=== PATIENT | female | born 1940 | race Caucasian/White ===

== ENCOUNTER 2017-01-03 08:25 | Day surgery (SDC) | payer MEDICARE, OTHER ==
[2017-01-03] MEDS ORDERED: Lactated Ringers 1,000 ML IV SCH (09:00)
[2017-01-03] MEDS ORDERED: Propofol 200 MG/20 ML SDV ONE ×2 (09:57→10:47)
[2017-01-03] MEDS ORDERED: fentaNYL 100 MCG/2 ML SDV ONE (09:57)
[2017-01-03 12:20] VITALS: BP 121/71
--- NOTE | 2017-01-04 08:38 | OR ---
DATE OF PROCEDURE: 01/03/2017 PREOPERATIVE DIAGNOSIS: Colon cancer screening. POSTOPERATIVE DIAGNOSIS: Diverticulosis, 4 colon polyps, sent to laboratory as 3 specimens. PROCEDURE: Colonoscopy to the cecum with biopsy resection of 3 small colon polyps and snare cautery polypectomy of larger one. ANESTHESIA: IV anesthesia with monitored anesthesia care. INDICATIONS: This 76-year-old white female is referred for a colonoscopy for colon cancer screening. She says her last colonoscopic exam was done about 11 years ago. I counseled her for the procedure including the risks and alternatives, and she gave her informed consent to proceed. DESCRIPTION OF PROCEDURE: The patient was placed in the left lateral decubitus position. IV anesthesia was administered by the Anesthesia Service. Time-out was held. A rectal exam was performed, which was unremarkable. The flexible video Olympus colonoscope was introduced through her anus, up her rectum, and out her colon all the way to the cecum. En route, in the right colon, we saw 2 small polyps which were removed with the biopsy forceps. They were adjacent to each other, so they were sent together to the laboratory as one specimen. In the cecum, we saw another small polyp, which was removed with the biopsy forceps and sent to the laboratory. The scope was then slowly withdrawn, examining the mucosa throughout. No additional mucosal abnormalities noted until we reached the left colon. Here, we saw very few scattered left-sided diverticula. There was no bleeding or inflammation associated with them. At 20 cm from the anal verge, we encountered a pedunculated polyp. A snare was passed about its base. It was elevated up away from the bowel wall and amputated as electrocautery was applied. This polyp was aspirated up through the scope and captured in a polyp trap and sent to the laboratory. The scope was retroflexed in the rectum with the distal rectum appearing unremarkable. The scope was straightened and removed. She tolerated the procedure well. Deangelo Aguirre MD /[id number] MTDD
== END 2017-01-03 12:37 | disposition home or self-care (01) ==
LOC: JP.SDS 08:25
PROVIDERS: ATTEND Surgery
DX: Z12.11 Encounter for screening for malignant neoplasm of colon (principal); D12.2 Benign neoplasm of ascending colon; D12.0 Benign neoplasm of cecum; D12.6 Benign neoplasm of colon, unspecified; K57.30 Diverticulosis of large intestine without perforation or abscess without bleeding; K21.9 Gastro-esophageal reflux disease without esophagitis; M81.0 Age-related osteoporosis without current pathological fracture; Z79.899 Other long term (current) drug therapy
CPT/HCPCS: 45380; 45385; J2704; J3010; J7120; 88305

== ENCOUNTER 2017-01-05 15:31 | Emergency (ER) | payer MEDICARE, OTHER ==
[2017-01-05] MEDS ORDERED: Sodium Chloride 0.9% 1,000 ML IV ONE (16:06)
[2017-01-05] MEDS ORDERED: Sodium Chloride 0.9% 10 ML Syringe FLUSH PRN (16:06)
[2017-01-05] MEDS ORDERED: Acetaminophen 500 MG Tab PO ONE (16:07)
--- NOTE | 2017-01-05 16:12 | EDM.PDOC ---
ED HPI GENERAL MEDICAL PROBLEM - General Chief Complaint: Abdominal Pain Stated Complaint: COLONOSCOPY WED/ PAIN Time Seen by Provider: 01/05/17 16:00 Source of Information: Reports: Patient History Limitations: Reports: No Limitations - History of Present Illness INITIAL COMMENTS - FREE TEXT/NARRATIVE: Romelia is a delightful 76 year old female who presents to the ED today with c/o lower abdominal pain. Patient had colonoscopy with [address] Noonan on SundayJanuary 03. She has had lower abdominal pain since that time. She denies any other associative symptoms. Patient denies any nausea/ vomiting/diarrhea/hematochezia. Patient reports she has been passing light brown soft stool. Patient reports she spoke with the nurse line today who told her to come in. She has been eating and drinking well and denies any fever. She has been taking Tylenol for pain. Onset: Gradual Duration: Day(s): (2) Lower Abdominal Pain Score (Numeric/FACES): 6 - Related Data Allergies Allergy/AdvReac Type Severity Reaction Status Date / Time No Known Allergies Allergy Verified 01/03/17 08:49 Home Meds: Home Meds Albuterol Sulfate 2.5 mg IH DAILY 02/23/16 [History] Albuterol [Proair HFA] 2 puff INH Q4H PRN 02/23/16 [History] Arformoterol Tartrate [Brovana] 2 inh INH BID 02/23/16 [History] Aspirin [Ecotrin] 81 mg PO DAILY 02/23/16 [History] Furosemide [Lasix] 20 mg PO BID 02/23/16 [History] Gabapentin 300 mg PO BID 02/23/16 [History] Lisinopril 10 mg PO DAILY 02/23/16 [History] Lovastatin 40 mg PO BEDTIME 02/23/16 [History] Omeprazole 20 mg PO BIDAC 02/23/16 [History] Propranolol [Inderal LA] 80 mg PO BID 02/23/16 [History] cloNIDine [Catapres] 0.2 mg PO BEDTIME 02/23/16 [History] Ascorbic Acid [Vitamin C] 1,000 mg PO DAILY 10/23/16 [History] Gluc 2KCl/Chondr/Cris Hy/Hy Ac [Glucosamine & Chondroitin Cap] 1 each PO BID [History] Vitamin E 400 unit PO DAILY 10/23/16 [History] Acetaminophen 500 mg PO Q6H PRN 01/02/17 [History] Alendronate [Fosamax] 70 mg PO WEEKLY 01/02/17 [History] Budesonide [Pulmicort] 0.5 mg IH BID 01/02/17 [History] Fish Oil/[place]-3 Fatty Acids [Fish Oil] 1 each PO DAILY 01/02/17 [History] Hydrocodone/Acetaminophen [Hydrocodon-Acetaminophen 5-325] 1 each PO Q6H PRN [History] Loratadine [Claritin] 10 mg PO DAILY 01/02/17 [History] Sennosides/Docusate Sodium [Sennosides-Docusate Sodium] 2 each PO DAILY [History] Past Medical History HEENT History: Reports: Cataract, Glaucoma Other HEENT History: Fuchs Disease, monitored for Glaucome by in [place] Cardiovascular History: Reports: Heart Failure, High Cholesterol, Hypertension, SOB on Exertion Respiratory History: Reports: COPD Gastrointestinal History: Reports: Bowel Obstruction, GERD Genitourinary History: Reports: Renal Calculus 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: Reports: Dysfunctional Uterine Bleeding, Musculoskeletal History: Reports: Back Pain, Chronic, Neck Pain, Chronic, Osteoarthritis Neurological History: Reports: Neuropathy, Peripheral Endocrine/Metabolic History: Reports: Obesity/BMI 30+, Osteopenia Hematologic History: Reports: Blood Transfusion(s) Immunologic History: Reports: None Oncologic (Cancer) History: Reports: Lung - Infectious Disease History Infectious Disease History: Reports: Chicken Pox - Past Surgical History HEENT Surgical History: Reports: Tonsillectomy Cardiovascular Surgical History: Reports: AAA Repair, Aneurysm Respiratory Surgical History: Reports: Lung Biopsies, Lung Resection Other Respiratory Surgeries/Procedures: Radiation GI Surgical History: Reports: Appendectomy, Colonoscopy Female Surgical History: Reports: D&C, Hysterectomy Endocrine Surgical History: Reports: None Neurological Surgical History: Reports: None Musculoskeletal Surgical History: Reports: Shoulder Surgery Oncologic Surgical History: Reports: Lobectomy Social & Family History - Family History HEENT: Reports: None Cardiac: Reports: Heart Failure Other Cardiac Family History: Father heart attacks, mother congestive heart failure : Reports: Renal Calculus Musculoskeletal: Reports: Osteoarthritis Other Musculoskeletal Family History: Mother osteoarthritis Endocrine/Metabolic: Reports: Diabetes, type II Other Endocrine/Metabolic Family History: son, Type 2 diabetes Immunologic: Reports: None Dermatologic: Reports: None Oncologic: Reports: None - Tobacco Use Smoking Status *Q: Never Smoker Years of Tobacco use: 45 Packs/Tins Daily: 1 Used Tobacco, but Quit: Yes Month Tobacco Last Used: 2008 Second Hand Smoke Exposure: No - Caffeine Use Caffeine Use: Reports: Coffee Caffeine Use Comment: 4 cups coffee per day - Alcohol Use Days Per Week of Alcohol Use: 0 - Recreational Drug Use Recreational Drug Use: No - Living Situation & Occupation Living situation: Reports: Occupation: Retired ED ROS GENERAL - Review of Systems Review Of Systems: ROS reveals no pertinent complaints other than HPI. ED EXAM, GI/ABD - Physical Exam Exam: See Below Exam Limited By: No Limitations General Appearance: Alert, WD/WN, No Apparent Distress Neck: Normal Inspection Respiratory/Chest: Decreased Breath Sounds, Other (COPD, on chronic o2 ). No: Respiratory Distress Cardiovascular: Regular Rate, Rhythm, No Murmur GI/Abdominal Exam: Normal Bowel Sounds, Soft, Tender (mid line lower abdomen. ) (Female) Exam: Deferred Rectal (Female) Exam: Deferred Extremities: Normal Inspection Neurological: Alert, Oriented, CN II-XII Intact Psychiatric: Normal Affect, Normal Mood Skin Exam: Warm, Dry, Intact Course - Vital Signs Last Recorded V/S: Last Vital Signs Temp 36.6 C 01/05/17 15:53 Pulse 69 01/05/17 15:53 Resp 20 01/05/17 15:53 BP 149/77 H 01/05/17 15:53 Pulse Ox 94 L 01/05/17 15:53 Romelia is a 76 year old female who presents to the ED today with c/o mid-lower abdominal pain since her colonoscopy on Sunday. Please refer to HPI and focused exam. Patient on exam is well hydrated, she is non-toxic appearing, tender on exam to mid lower abdomen. Concern for perforation vs. infection vs. likely gaseous distension of colon. PIV established, patient was given a liter of NS here with 1 Gram of Tylenol for her pain as she drove here today. Blood work evaluated, CBC returns reassuring with a normal white count 7.7 and a HGB of 14.6. CMP returns with a creatinine of 1.5 and GFR of 34 which is baseline for patient. AST is mildly elevated at 63, ALT is mildly elevated at 93. CT scan, non contrast, obtained of abdomen and pelvis, this returns reassuring with no signs of perforation or abscess formation. Patient does have cholelithiasis without evidence for cholecystits. No biliary dilation. Large hiatal hernia with no obstruction. No small bowel wall thickening. Colon with area of slight wall prominence felt to be related to non-distention. I discussed findings of today's exam and test results with patient. I feel at this time she is stable to be discharged home. I would like her to continue to stay well hydrated and she can continue Tylenol for pain. I encouraged patient to follow up with her primary surgeon on Sunday to discuss today's visit, reasons to return to the ED were discussed in detail. Patient is agreeable to plan of care and discharged in stable condition. - Orders/Labs/Meds Orders: Active Orders 24 hr Category Date Time Status Peripheral IV Care [RC] . DIRECTED Care 01/05/17 16:06 Active Abdomen Pelvis wo Cont [CT] Stat Exams 01/05/17 16:48 Taken Sodium Chloride 0.9% [Saline Flush] Med 01/05/17 16:06 Active 10 ml FLUSH ASDIRECTED PRN Peripheral IV Insertion Adult [OM.PC] Routine Oth 01/05/17 16:06 Ordered Medication Orders Sodium Chloride (Saline Flush) 10 ml FLUSH ASDIRECTED PRN PRN Reason: Keep Vein Open Last Admin: 01/05/17 16:20 Dose: 10 ml Labs: Laboratory Tests 01/05/17 01/05/17 Range/Units 16:22 16:22 WBC 7.7 (4.5-11.0) K/uL RBC 4.93 (3.30-5.50) M/uL Hgb 14.6 (12.0-15.0) g/dL Hct 46.6 (36.0-48.0) % MCV 95 (80-98) fL MCH 30 (27-31) pg MCHC 31 L (32-36) % Plt Count 210 (150-400) K/uL Neut % (Auto) 46 (36-66) % Lymph % (Auto) 41 (24-44) % [place] % (Auto) 11 H (2-6) % Eos % (Auto) 1 L (2-4) % Baso % (Auto) 1 (0-1) % Sodium 141 (140-148) mmol/L Potassium 4.5 (3.6-5.2) mmol/L Chloride 103 (100-108) mmol/L Carbon Dioxide 31 (21-32) mmol/L Anion Gap 7.1 (5.0-14.0) mmol/L BUN 17 (7-18) mg/dL Creatinine 1.5 H (0.6-1.0) mg/dL Est Cr Clr Drug Dosing TNP Estimated GFR (MDRD) 34 L (>60) Glucose 113 H (74-106) mg/dL Calcium 10.4 H (8.5-10.1) mg/dL Total Bilirubin 0.5 (0.2-1.0) mg/dL AST 63 H (15-37) U/L ALT 93 H (12-78) U/L Alkaline Phosphatase 53 (46-116) U/L Total Protein 7.7 (6.4-8.2) g/dL Albumin 3.6 (3.4-5.0) g/dL Globulin 4.1 H (2.3-3.5) g/dL Albumin/Globulin Ratio 0.9 L (1.2-2.2) Lipase 104 (73-393) U/L Meds: Medications Generic Name Dose Route Start Last Admin Trade Name Freq PRN Reason Stop Dose Admin Sodium Chloride 10 ml 01/05/17 16:06 01/05/17 16:20 Saline Flush FLUSH 10 ml ASDIRECTED PRN Administration Keep Vein Open Discontinued Medications Generic Name Dose Route Start Last Admin Trade Name Freq PRN Reason Stop Dose Admin Acetaminophen 1,000 mg 01/05/17 16:07 01/05/17 16:22 Tylenol Extra Strength PO 01/05/17 16:08 1,000 mg ONETIME ONE Administration Sodium Chloride 1,000 mls @ 999 mls/hr 01/05/17 16:06 01/05/17 16:19 Normal Saline IV 01/05/17 17:06 999 mls/hr .BOLUS ONE Administration Departure - Departure Time of Disposition: 18:30 Disposition: Home, Self-Care 01 Condition: Good Clinical Impression: Abdominal pain Qualifiers: Abdominal location: lower abdomen, unspecified Qualified Code(s): R10.30 - Lower abdominal pain, unspecified - Discharge Information Instructions: Abdominal Pain, Adult, [id number] Referrals: Grover Lombardo MD [Primary Care Provider] - Forms: ED Department Discharge Additional Instructions: Vera, It is likely the abdominal pain you have is from recent colonoscopy and gas in colon. CT scan and blood work are reassuring. Please continue to stay well hydrated. You can take 1,000 mg of Tylenol every 6 hours for pain, maximum total in a 24 hour period is 4,000 mg. If you continue to have pain on Sunday please call the clinic. If you develop any worsening symptoms or complications I would like you to return here. Take care and I hope you feel better soon. - My Orders Last 24 Hours: My Active Orders 01/05/17 16:06 Peripheral IV Care [RC] . DIRECTED Sodium Chloride 0.9% [Saline Flush] 10 ml FLUSH ASDIRECTED PRN Peripheral IV Insertion Adult [OM.PC] Routine 01/05/17 16:48 Abdomen Pelvis wo Cont [CT] Stat - Assessment/Plan Last 24 Hours: My Active Orders 01/05/17 16:06 Peripheral IV Care [RC] . DIRECTED Sodium Chloride 0.9% [Saline Flush] 10 ml FLUSH ASDIRECTED PRN Peripheral IV Insertion Adult [OM.PC] Routine 01/05/17 16:48 Abdomen Pelvis wo Cont [CT] Stat
[2017-01-05 16:48] VITALS: BP 149/77
== END 2017-01-05 18:45 | disposition home or self-care (01) ==
LOC: JP.ED 15:31
DX: R10.30 Lower abdominal pain, unspecified (principal); I11.0 Hypertensive heart disease with heart failure; I50.9 Heart failure, unspecified; E78.00 Pure hypercholesterolemia, unspecified; J44.9 Chronic obstructive pulmonary disease, unspecified; K21.9 Gastro-esophageal reflux disease without esophagitis; G62.9 Polyneuropathy, unspecified; E66.9 Obesity, unspecified; M85.80 Other specified disorders of bone density and structure, unspecified site; M19.90 Unspecified osteoarthritis, unspecified site; Z90.710 Acquired absence of both cervix and uterus; Z98.890 Other specified postprocedural states; Z86.79 Personal history of other diseases of the circulatory system; Z79.82 Long term (current) use of aspirin; Z79.899 Other long term (current) drug therapy
CPT/HCPCS: 36415; 74176; 80053; 83690; 85025; 96360; 99284; A9270; J7040; J7050

== ENCOUNTER 2017-09-24 06:03 | Emergency (ER) | payer MEDICARE, OTHER ==
[2017-09-24 06:23] VITALS: BP 132/69
--- NOTE | 2017-09-24 07:26 | EDM.PDOC ---
ED HPI GENERAL MEDICAL PROBLEM - General Chief Complaint: Genitourinary Problem Stated Complaint: BLOOD IN URINE Time Seen by Provider: 09/24/17 07:20 Source of Information: Reports: Patient History Limitations: Reports: No Limitations - History of Present Illness INITIAL COMMENTS - FREE TEXT/NARRATIVE: pt arrived with pain on voiding and very bloody urine. She Has alot of pressure and has the sensationlike she is going to have BM,. Onset: Today, Other ( started about 3 am) Duration: Hour(s): Location: Reports: Abdomen, Other ( burning in the unique area. ) Quality: Reports: Sharp Associated Symptoms: Reports: Other ( severe burning on urination) Pain Score (Numeric/FACES): 3 - Related Data Allergies Allergy/AdvReac Type Severity Reaction Status Date / Time No Known Allergies Allergy Verified 09/24/17 06:17 Home Meds: Home Meds Albuterol [Proair HFA] 2 puff INH Q4H PRN 02/23/16 [History] Arformoterol Tartrate [Brovana] 2 inh INH DAILY 02/23/16 [History] Aspirin [Ecotrin] 81 mg PO DAILY 02/23/16 [History] Furosemide [Lasix] 20 mg PO BID 02/23/16 [History] Gabapentin 300 mg PO BID 02/23/16 [History] Lisinopril 10 mg PO DAILY 02/23/16 [History] Lovastatin 40 mg PO BEDTIME 02/23/16 [History] Omeprazole 20 mg PO BIDAC 02/23/16 [History] Propranolol [Inderal LA] 40 mg PO BID 02/23/16 [History] cloNIDine [Catapres] 0.2 mg PO BEDTIME 02/23/16 [History] Ascorbic Acid [Vitamin C] 1,000 mg PO DAILY 10/23/16 [History] Gluc 2KCl/Chondr/Cris Hy/Hy Ac [Glucosamine & Chondroitin Cap] 1 each PO BID [History] Vitamin E 400 unit PO DAILY 10/23/16 [History] Acetaminophen 500 mg PO DAILY 01/02/17 [History] Alendronate [Fosamax] 70 mg PO WEEKLY 01/02/17 [History] Budesonide [Pulmicort] 0.5 mg IH DAILY 01/02/17 [History] Fish Oil/[place]-3 Fatty Acids [Fish Oil] 1 each PO DAILY 01/02/17 [History] Hydrocodone/Acetaminophen [Hydrocodon-Acetaminophen 5-325] 1 each PO Q6H PRN [History] Sennosides/Docusate Sodium [Sennosides-Docusate Sodium] 2 each PO DAILY [History] Docusate Sodium [Colace] 100 mg PO DAILY 09/24/17 [History] Past Medical History HEENT History: Reports: Cataract, Glaucoma Other HEENT History: Fuchs Disease, monitored for Glaucome by Dr in [place] Cardiovascular History: Reports: Heart Failure, High Cholesterol, Hypertension, SOB on Exertion, Other (See Below) Other Cardiovascular History: dissecting aortic aneuysm in 2009 Respiratory History: Reports: COPD Gastrointestinal History: Reports: Bowel Obstruction, Colon Polyp, GERD Genitourinary History: Reports: Renal Calculus 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, Musculoskeletal History: Reports: Back Pain, Chronic, Neck Pain, Chronic, Osteoarthritis Neurological History: Reports: Neuropathy, Peripheral Endocrine/Metabolic History: Reports: Obesity/BMI 30+, Osteopenia Hematologic History: Reports: Blood Transfusion(s) Immunologic History: Reports: None Oncologic (Cancer) History: Reports: Lung - Infectious Disease History Infectious Disease History: Reports: Chicken Pox - Past Surgical History HEENT Surgical History: Reports: Tonsillectomy Cardiovascular Surgical History: Reports: AAA Repair, Aneurysm Respiratory Surgical History: Reports: Lung Biopsies, Lung Resection Other Respiratory Surgeries/Procedures: Radiation GI Surgical History: Reports: Appendectomy, Colonoscopy Female Surgical History: Reports: D&C, Hysterectomy Endocrine Surgical History: Reports: None Musculoskeletal Surgical History: Reports: Shoulder Surgery Oncologic Surgical History: Reports: Lobectomy Social & Family History - Family History HEENT: Reports: None Cardiac: Reports: Heart Failure Other Cardiac Family History: Father heart attacks, mother congestive heart failure : Reports: Renal Calculus Musculoskeletal: Reports: Osteoarthritis Other Musculoskeletal Family History: Mother osteoarthritis Endocrine/Metabolic: Reports: Diabetes, type II Other Endocrine/Metabolic Family History: son, Type 2 diabetes Immunologic: Reports: None Dermatologic: Reports: None Oncologic: Reports: None - Tobacco Use Smoking Status *Q: Former Smoker Years of Tobacco use: 45 Packs/Tins Daily: 1 Used Tobacco, but Quit: Yes Month/Year Tobacco Last Used: 2008 Second Hand Smoke Exposure: No - Caffeine Use Caffeine Use: Reports: Coffee Caffeine Use Comment: 4 cups coffee per day - Alcohol Use Days Per Week of Alcohol Use: 0 - Recreational Drug Use Recreational Drug Use: No - Living Situation & Occupation Living situation: Reports: Occupation: Retired ED ROS GENERAL - Review of Systems Review Of Systems: See Below Constitutional: Reports: No Symptoms HEENT: Reports: No Symptoms Respiratory: Reports: No Symptoms Cardiovascular: Reports: No Symptoms Endocrine: Reports: No Symptoms GI/Abdominal: Reports: No Symptoms : Reports: Dysuria, Frequency, Hematuria, Urgency, Other ( she has the sensation that she is going to have bm. ) Musculoskeletal: Reports: No Symptoms Skin: Reports: No Symptoms ED EXAM, GI/ABD - Physical Exam Exam: See Below Exam Limited By: No Limitations General Appearance: Alert, Moderate Distress, Other (pupils equal and reactive. ) Ears: Normal TMs Nose: Normal Inspection Throat/Mouth: Normal Inspection Head: Atraumatic Neck: Normal Inspection Respiratory/Chest: No Respiratory Distress Cardiovascular: Regular Rate, Rhythm GI/Abdominal Exam: Soft, Non-Tender (Female) Exam: Other (pt is having gross hematuria with alot of burning on urination. ) Rectal (Female) Exam: Deferred Back Exam: Normal Inspection Extremities: Normal Inspection Neurological: Alert, Oriented, Normal Cognition Course - Vital Signs Last Recorded V/S: Last Vital Signs Temp 36.4 C 09/24/17 06:21 Pulse 72 09/24/17 06:21 Resp 24 H 09/24/17 06:21 BP 132/69 09/24/17 06:21 Pulse Ox 96 09/24/17 06:21 - Orders/Labs/Meds Labs: Laboratory Tests 09/24/17 09/24/17 09/24/17 Range/Units 06:51 07:23 07:23 WBC 8.2 (4.5-11.0) K/uL RBC 4.71 (3.30-5.50) M/uL Hgb 13.9 (12.0-15.0) g/dL Hct 43.9 (36.0-48.0) % MCV 93 (80-98) fL MCH 30 (27-31) pg MCHC 32 (32-36) % Plt Count 195 (150-400) K/uL Neut % (Auto) 57 (36-66) % Lymph % (Auto) 30 (24-44) % [place] % (Auto) 11 H (2-6) % Eos % (Auto) 2 (2-4) % Baso % (Auto) 0 (0-1) % Sodium 143 (140-148) mmol/L Potassium 4.5 (3.6-5.2) mmol/L Chloride 105 (100-108) mmol/L Carbon Dioxide 29 (21-32) mmol/L Anion Gap 8.8 (5.0-14.0) mmol/L BUN 26 H D (7-18) mg/dL Creatinine 1.1 H (0.6-1.0) mg/dL Est Cr Clr Drug Dosing 34.95 mL/min Estimated GFR (MDRD) 48 L (>60) Glucose 138 H (74-106) mg/dL Calcium 10.0 (8.5-10.1) mg/dL Total Bilirubin 0.4 (0.2-1.0) mg/dL AST 36 (15-37) U/L ALT 78 (12-78) U/L Alkaline Phosphatase 51 (46-116) U/L Total Protein 7.0 (6.4-8.2) g/dL Albumin 3.5 (3.4-5.0) g/dL Globulin 3.5 (2.3-3.5) g/dL Albumin/Globulin Ratio 1.0 L (1.2-2.2) Urine Color Red Urine Appearance Turbid Urine pH 6.0 (4.5-8.0) Ur Specific Leiter 1.020 (1.008-1.030) Urine Protein 500 H (NEGATIVE) mg/dL Urine Glucose (UA) Normal (NEGATIVE) mg/dL Urine Ketones Negative (NEGATIVE) mg/dL Urine Occult Blood Large (NEGATIVE) Urine Nitrite Negative (NEGATIVE) Urine Bilirubin Small (NEGATIVE) Urine Urobilinogen 1 (NORMAL) mg/dL Ur Leukocyte Esterase Large (NEGATIVE) Urine RBC Packed H (0-5) Urine WBC 30-40 H (0-5) Ur Epithelial Cells Not seen Amorphous Sediment Not seen Urine Bacteria Many Urine Mucus Few Meds: Medications Discontinued Medications Generic Name Dose Route Start Last Admin Trade Name Freq PRN Reason Stop Dose Admin Bisacodyl 10 mg 09/24/17 09:24 09/24/17 09:30 Dulcolax RECTAL 09/24/17 09:25 10 mg ONETIME ONE Administration Sodium Chloride 1,000 mls @ 999 mls/hr 09/24/17 07:45 09/24/17 08:04 Normal Saline IV 999 mls/hr ASDIRECTED CURTIS Administration Ceftriaxone Sodium 1 gm/ 50 mls @ 100 mls/hr 09/24/17 07:44 09/24/17 08:03 Sodium Chloride IV 09/24/17 08:13 100 mls/hr ONETIME ONE Administration Sodium Chloride 85 mls @ 3.5 mls/sec 09/24/17 08:15 09/24/17 08:34 Normal Saline IV 09/24/17 13:00 3.5 mls/sec ASDIRECTED CURTIS Administration Sodium Chloride 1,000 mls @ 500 mls/hr 09/24/17 09:30 09/24/17 09:30 Normal Saline IV 500 mls/hr ASDIRECTED CURTIS Administration Iopamidol 150 ml 09/24/17 08:08 09/24/17 08:34 Isovue-300 (61%) IV 09/25/17 08:09 150 ml . DIRECTED PRN Administration RADIOLOGY EXAM Sodium Chloride 10 ml 09/24/17 08:08 09/24/17 08:34 Saline Flush FLUSH 09/24/17 13:00 10 ml ONETIME PRN Administration per radiology protocol - Re-Assessments/Exams Free Text/Narrative Re-Assessment/Exam: 09/24/17 10:23 PT HAD A CAT SCAN OF THE ABDOMAN WITH AND WITHOUT CONTRAST. WHICH SHOWED MULTIPLE STONES IN THE KIDNEYS, NONE IN THE URETERS. tHERE IS NO MASSES AND NO POLYPS PRESENT. hER KIDNEYS APPEAR NORMAL. sHE HAS A LARGE BOLUS OF STOOL IN THE RECTUM. sHE WAS GIBEN A SUPP AND HAD A LARGE BM. sHE IS FEELING BETTER FROM THAT PERSPECTIVE. tHE BLOOD APPEARS TO BE A LITTLE LESS. Departure - Departure Time of Disposition: 11:45 Disposition: Home, Self-Care 01 Condition: Fair Clinical Impression: UTI (urinary tract infection) - Discharge Information Instructions: Urinary Tract Infection, Adult Referrals: Grover Lombardo MD [Primary Care Provider] - Forms: ED Department Discharge Care Plan Goals: PUSH FLUIDS, RTC IF BLEEDING SHOULD GE HEAVIER, APPT WITH USUAL dR IN 1WEEK TO BE SURE THE BLOOD IS CLEARING. cIPRO 500MG BID FOR 10 DAYS PYRIDIUM 200MG TID FOR 2 DAYS FOR THE BURNING.
[2017-09-24] MEDS ORDERED: cefTRIAXone 1 GM in Sodium Chloride 0.9% 50 ML IV ONE (07:44)
[2017-09-24] MEDS ORDERED: Sodium Chloride 0.9% 1,000 ML IV SCH ×2 (07:45→09:30)
[2017-09-24] MEDS ORDERED: Iopamidol 612 MG/ML 150 ML Bottle IV PRN (08:08)
[2017-09-24] MEDS ORDERED: Sodium Chloride 0.9% 10 ML Syringe FLUSH PRN (08:08)
[2017-09-24] MEDS ORDERED: Bisacodyl 10 MG Supp RECTAL ONE (09:24)
--- NOTE | 2017-09-24 09:27 | CT ---
Abdomen Pelvis w wo Cont HISTORY: Pain, hematuria. COMPARISON: 01/06/2017. FINDINGS: Multiphasic imaging was performed. Scattered nonobstructing kidney stones measuring 2 to 3 mm. No hydronephrosis or hydroureter. Parapelvic cyst right kidney measuring 2.4 cm. No solid renal l esions seen. No bladder filling defects seen. Moderate stool within the rectum no obstruction. There are small gallstones in the gallbladder. The liver, spleen, pancreas and adrenal glands appear unremarkable. Prior stenting of the aorta at the level of the diaphragm. Large hiatal hernia. Impression: 1. Nonobstructing nephrolithiasis. No direct findings for patient's hematuria. 2. Moderate stool the level of the rectum.
== END 2017-09-24 11:44 | disposition home or self-care (01) ==
LOC: JP.ED 06:03
DX: N39.0 Urinary tract infection, site not specified (principal); R31.9 Hematuria, unspecified; I11.0 Hypertensive heart disease with heart failure; I50.9 Heart failure, unspecified; E78.00 Pure hypercholesterolemia, unspecified; Z79.82 Long term (current) use of aspirin; Z79.899 Other long term (current) drug therapy; Z87.891 Personal history of nicotine dependence
CPT/HCPCS: 36415; 74178; 80053; 81001; 85025; 87086; 87088; 87186; 96361; 96365; 99284; A9270; J0696; J7030; J7040; J7050; 99283

== ENCOUNTER 2020-03-19 08:42 | Inpatient (IN) | payer MEDICARE, OTHER ==
[2020-03-19] MEDS ORDERED: Acetaminophen 500 MG Tab PO ONE (09:15)
[2020-03-19] MEDS ORDERED: ceFAZolin 2 GM in Premix Bag 1 BAG IV ONE (09:15)
[2020-03-19] MEDS ORDERED: Gabapentin 300 MG Cap PO ONE (09:15)
[2020-03-19] MEDS ORDERED: Albuterol/Ipratropium 3.0-0.5 MG/3 ML Neb Soln NEB ONE (09:15)
[2020-03-19] MEDS ORDERED: fentaNYL 250 MCG/5 ML SDV ONE (10:28)
[2020-03-19] MEDS ORDERED: Ondansetron 4 MG/2 ML SDV ONE (10:28)
[2020-03-19] MEDS ORDERED: Succinylcholine 200 MG/10 ML MDV ONE (10:28)
[2020-03-19] MEDS ORDERED: Glycopyrrolate 0.2 MG/ML 5 ML MDV ONE (10:28)
[2020-03-19] MEDS ORDERED: Dexamethasone 4 MG/ML SDV ONE (10:28)
[2020-03-19] MEDS ORDERED: Rocuronium 50 MG/5 ML Vial ONE (10:28)
[2020-03-19] MEDS ORDERED: Propofol 200 MG/20 ML SDV ONE (10:28)
[2020-03-19] MEDS ORDERED: Neostigmine Methylsulfate 1 MG/ML 5 ML Syringe ONE (10:28)
[2020-03-19] MEDS: Dextrose 5%-Lactated Ringers 1,000 ML IV SCH ×2 (10:30→14:35)
[2020-03-19] MEDS ORDERED: Isosulfan Blue 5 ML SDV ONE (11:02)
[2020-03-19] MEDS ORDERED: Mupirocin Oint 22 GM Tube ONE (12:15)
[2020-03-19] MEDS ORDERED: fentaNYL 100 MCG/2 ML SDV ONE (12:15)
[2020-03-19] MEDS ORDERED: Ondansetron 4 MG/2 ML SDV IVPUSH PRN ×2 (12:20→14:00)
[2020-03-19] MEDS ORDERED: Naloxone 0.4 MG/ML SDV IVPUSH PRN (12:20)
[2020-03-19] MEDS ORDERED: diphenhydrAMINE 25 MG Cap PO PRN (12:20)
[2020-03-19] MEDS ORDERED: diphenhydrAMINE 50 MG/ML SDV IVPUSH PRN (12:20)
[2020-03-19] MEDS ORDERED: HYDROmorphone/Normal Saline 15 MG/30 ML PCA IV PRN (12:30)
[2020-03-19] MEDS ORDERED: Naloxone 0.4 MG/ML SDV IV PRN (13:00)
[2020-03-19] MEDS ORDERED: Albuterol/Ipratropium 3.0-0.5 MG/3 ML Neb Soln INH PRN (14:00)
[2020-03-19] MEDS: Albuterol/Ipratropium 3.0-0.5 MG/3 ML Neb Soln INH SCH ×2 (14:27→21:17)
[2020-03-19] MEDS: Furosemide 20 MG Tab PO SCH (14:38)
[2020-03-19] MEDS: Loratadine 10 MG Tab PO SCH (14:38)
[2020-03-19] MEDS: Acetaminophen 325 MG Tab PO SCH ×2 (14:38→21:15)
[2020-03-19] MEDS: Pantoprazole 40 MG Tab.CR PO SCH (16:21)
[2020-03-19] MEDS: ceFAZolin 1 GM in Premix Bag 1 BAG IV SCH (18:04)
[2020-03-19] MEDS: Gabapentin 300 MG Cap PO SCH (21:15)
[2020-03-19] MEDS: cloNIDine 0.1 MG Tab PO SCH (21:15)
[2020-03-19] MEDS: Metoprolol Tartrate 50 MG Tab PO SCH (21:15)
[2020-03-19] MEDS: Arformoterol 15 MCG/2 ML Neb Soln INH SCH (21:16)
[2020-03-19] MEDS: Budesonide 0.5 MG/2 ML Neb Susp INH SCH (21:17)
[2020-03-20] MEDS: ceFAZolin 1 GM in Premix Bag 1 BAG IV SCH ×2 (01:27→11:26)
[2020-03-20] MEDS: Acetaminophen 325 MG Tab PO SCH ×4 (01:31→20:09)
[2020-03-20] MEDS: Dextrose 5%-Lactated Ringers 1,000 ML IV SCH (01:35)
[2020-03-20] MEDS ORDERED: Sodium Chloride 0.9% 10 ML Syringe IV PRN (07:21)
[2020-03-20] MEDS: Albuterol/Ipratropium 3.0-0.5 MG/3 ML Neb Soln INH SCH ×4 (08:00→20:13)
[2020-03-20] MEDS: Budesonide 0.5 MG/2 ML Neb Susp INH SCH ×2 (08:00→20:24)
[2020-03-20] MEDS: Arformoterol 15 MCG/2 ML Neb Soln INH SCH ×2 (08:01→20:13)
[2020-03-20] MEDS: Loratadine 10 MG Tab PO SCH (08:45)
[2020-03-20] MEDS: Pantoprazole 40 MG Tab.CR PO SCH ×2 (08:45→15:58)
[2020-03-20] MEDS: Furosemide 20 MG Tab PO SCH ×2 (08:45→13:42)
[2020-03-20] MEDS: Aspirin 81 MG Tab.EC PO SCH (08:46)
[2020-03-20] MEDS: Gabapentin 300 MG Cap PO SCH ×2 (08:46→20:13)
[2020-03-20] MEDS: Metoprolol Tartrate 50 MG Tab PO SCH ×2 (08:46→20:12)
[2020-03-20] MEDS: Ascorbic Acid 500 MG Tab PO SCH (08:46)
[2020-03-20] MEDS: Lisinopril 10 MG Tab PO SCH (08:47)
[2020-03-20] MEDS: Mupirocin Oint 22 GM Tube TOP SCH (08:48)
[2020-03-20] MEDS: HYDROmorphone 2 MG Tab PO PRN ×3 (09:03→20:12)
[2020-03-20] MEDS: cloNIDine 0.1 MG Tab PO SCH (20:09)
[2020-03-21] MEDS: Acetaminophen 325 MG Tab PO SCH ×4 (03:38→20:51)
[2020-03-21] MEDS: HYDROmorphone 2 MG Tab PO PRN ×2 (03:42→13:40)
[2020-03-21] MEDS: Budesonide 0.5 MG/2 ML Neb Susp INH SCH ×2 (07:16→20:39)
[2020-03-21] MEDS: Albuterol/Ipratropium 3.0-0.5 MG/3 ML Neb Soln INH SCH ×4 (07:16→20:39)
[2020-03-21] MEDS: Arformoterol 15 MCG/2 ML Neb Soln INH SCH ×2 (07:20→20:51)
[2020-03-21] MEDS: Furosemide 20 MG Tab PO SCH ×2 (07:29→13:34)
[2020-03-21] MEDS: Pantoprazole 40 MG Tab.CR PO SCH ×2 (07:29→15:43)
[2020-03-21] MEDS: Ascorbic Acid 500 MG Tab PO SCH (08:16)
[2020-03-21] MEDS: Metoprolol Tartrate 50 MG Tab PO SCH ×2 (08:16→20:52)
[2020-03-21] MEDS: Aspirin 81 MG Tab.EC PO SCH (08:16)
[2020-03-21] MEDS: Loratadine 10 MG Tab PO SCH (08:16)
[2020-03-21] MEDS: Gabapentin 300 MG Cap PO SCH ×2 (08:16→20:51)
[2020-03-21] MEDS: Lisinopril 10 MG Tab PO SCH (08:17)
[2020-03-21] MEDS: Mupirocin Oint 22 GM Tube TOP SCH (08:17)
[2020-03-21] MEDS ORDERED: FLU Vacc QV2020-21(65YR UP)/PF 240 MCG/0.7 ML Syringe IM ONE (09:00)
--- NOTE | 2020-03-21 13:11 | PN ---
DATE OF SERVICE: 03/20/2020 The patient has been afebrile with stable vital signs. No major problems were noted. LEIGHA drainage is moderate, still somewhat blood-tinged, but otherwise does not look problematic. We will give her regular diet today, go over oral pain medication, teach her LEIGHA care, and she perhaps may be ready for discharge home tomorrow depending on her pulmonary status and overall functional level. Coleman Lanier MD /[id number]
--- NOTE | 2020-03-21 14:29 | PN ---
DATE OF SERVICE: 03/21/2020 The patient has been afebrile with stable vital signs. site looks clean. She is beginning to get a little bit more mobile with respiratory status, so we will keep her 1 more day and will probably be ready for discharge home tomorrow. Coleman Lanier MD /[id number]
[2020-03-21] MEDS: cloNIDine 0.1 MG Tab PO SCH (20:53)
[2020-03-22] MEDS: Acetaminophen 325 MG Tab PO SCH ×2 (02:57→07:41)
[2020-03-22] MEDS: Arformoterol 15 MCG/2 ML Neb Soln INH SCH (07:00)
[2020-03-22] MEDS: Albuterol/Ipratropium 3.0-0.5 MG/3 ML Neb Soln INH SCH ×2 (07:00→10:55)
[2020-03-22] MEDS: Budesonide 0.5 MG/2 ML Neb Susp INH SCH (07:00)
[2020-03-22 07:25] VITALS: BP 131/64
[2020-03-22] MEDS: Pantoprazole 40 MG Tab.CR PO SCH (07:41)
[2020-03-22] MEDS: Furosemide 20 MG Tab PO SCH (07:41)
[2020-03-22] MEDS: Aspirin 81 MG Tab.EC PO SCH (08:20)
[2020-03-22] MEDS: Gabapentin 300 MG Cap PO SCH (08:20)
[2020-03-22] MEDS: Mupirocin Oint 22 GM Tube TOP SCH (08:20)
[2020-03-22] MEDS: Ascorbic Acid 500 MG Tab PO SCH (08:20)
[2020-03-22 08:22] VITALS: PULSE 67
[2020-03-22] MEDS: Metoprolol Tartrate 50 MG Tab PO SCH (08:22)
[2020-03-22] MEDS: Lisinopril 10 MG Tab PO SCH (08:22)
--- NOTE | 2020-03-22 08:24 | DISCH ---
ADMISSION DIAGNOSES: Ductal carcinoma in situ, low nuclear grade, solid papillary breast cancer, right breast; bronchogenic lung cancer, left; chronic obstructive pulmonary disease; hypertension; hyperlipidemia; oxygen dependent. DISCHARGE DIAGNOSES: Right modified radical mastectomy with sentinel lymph node biopsies for ductal carcinoma in situ right breast. Date of procedure: 03/19/2020. Surgeon: Coleman Lanier MD. HISTORY: Romelia Bowman is a 79-year-old female who presented with an abnormal screening of mammogram 1.3 x 0.9 x 0.8 cm nodule right breast at 3 o'clock. Core biopsy was done on 01/28 showed ductal carcinoma in situ, low nuclear grade, solid papillary. After preoperative evaluation and discussion of possible risks and possible complications, she wished to proceed with surgical procedure. HOSPITAL COURSE: Romelia had her surgery on 03/19/2020. She had no operative complications. On postoperative day #1, vital signs remained stable. LEIGHA drain was moderate and blood tinged. She was started on a regular diet, oral pain medication. On postoperative day #2, she was taught how to take care of her LEIGHA drains. Her pain was controlled. Activity was good. Vital signs stable. On 03/22/2020, she was able to be discharged to home. PHYSICAL EXAMINATION: GENERAL: Romelia Bowman is a pleasant 79-year-old female. VITAL SIGNS: Height is 5 feet 1.75 inches, weight is 224 pounds. TPR at 02:59 is 97.3; 73; 18; blood pressure 112/57. HEENT: Negative. NECK: Supple. HEART: Regular rate and rhythm. LUNGS: Clear. SKIN: Right stapled incision looks good. LEIGHA drains x2 intact. LEIGHA 1 put out 20 and LEIGHA drain 3 put out 30 in the past 24 hours. The drainage is a pink serosanguineous. EXTREMITIES: Without peripheral edema. DISPOSITION: Discharged home. CONDITION: Stable and improving. FOLLOWUP APPOINTMENT: On 03/31/2020 at 8:30 a.m. with Coleman Lanier MD. HOME MEDICATIONS: 1. Dilaudid 2 mg q.4 hours p.r.n. pain, #10. 2. Bactroban ointment, tube to be sent home with the patient, put around LEIGHA drain sites. 3. Tylenol 650 mg oral q.6 hours p.r.n. pain. 4. She is to resume her home medication of: a. ProAir inhaler 2 puffs every 4 hours p.r.n. shortness of breath. b. Brovana 2 mL inhalation b.i.d. c. Vitamin C 1000 mg oral daily. d. Aspirin 81 mg daily. e. Pulmicort 0.5 inhalation twice daily. f. Sealevel-3 fish oil 1000 mg 1 daily. g. Lasix 20 mg oral twice daily. h. Gabapentin 300 mg oral twice daily. i. Glucosamine 1 daily. j. Lisinopril 10 mg oral daily. k. Claritin 10 mg oral daily. l. Lovastatin 40 mg oral at bedtime. m. Metoprolol tartrate 50 mg oral twice daily. n. Omeprazole 20 mg oral twice daily. o. Sennosides, docusate sodium 2 tablets oral daily. p. Vitamin E 400 International Units daily. q. Catapres 0.2 mg at bedtime. DIET: Usual diet as tolerated. Drink 8 to 10 glasses of water a day. ACTIVITY: No lifting greater than 10 pounds for 6 weeks. Driving: Do not drive for 1 week. Shower/bathing: May shower. DISCHARGE INSTRUCTIONS: Notify provider if any fever, increased pain, swelling, redness, nausea, vomiting. Keep site clean and dry. Wound incision care: Strip, empty, measure, and record LEIGHA drains 4 times a day. Bring record of drainage to clinic appointments. SPECIAL INSTRUCTION: Use incentive spirometer 10 times every hour while awake.
[2020-03-22] MEDS: Loratadine 10 MG Tab PO SCH (08:34)
--- NOTE | 2020-03-23 12:47 | OR ---
DATE OF PROCEDURE: 03/19/2020 SURGEON: Coleman Lanier MD PREOPERATIVE DIAGNOSIS: Ductal carcinoma in situ of the right breast. POSTOPERATIVE DIAGNOSIS: Ductal carcinoma in situ of the right breast. OPERATIVE PROCEDURES: 1. Right modified radical mastectomy (). 2. Injection procedure for identification of sentinel lymph nodes (29903). ANESTHESIA: General. FEED BLENDER: Jacki Rm PA-C INDICATIONS FOR PROCEDURE: A 79-year-old female presenting with a newly-diagnosed ductal carcinoma in situ in the right breast. After preoperative evaluation and discussion, she wished to proceed with a mastectomy for definitive local regional control. Given mastectomy will be performed, sentinel lymph node biopsies will be undertaken as part of the mastectomy in the event some occult invasive carcinoma is identified at the time of final pathologic exam. Potential risks of the procedure including bleeding, infection, local or distant tumor recurrence were all reviewed, and the patient wishes to proceed. DETAILS OF PROCEDURE: The patient was taken to the operating room and placed in a supine position. After general endotracheal anesthesia was induced, the Isosulfan Blue dye was injected in the subdermal areas overlying the biopsy site, and the breast prepped and draped. A transversely-oriented elliptical incision was made including the previous biopsy site, nipple-areolar complex, then carried down through the skin and subcutaneous tissue. Subcutaneous flaps were then raised superiorly, medially, inferiorly, and laterally to the usual extent and the breast was then reflected off the chest wall in continuity to pectoralis major fascia. The lymphatic gland was noted to be creeping down into the level 3 of the axillary nodes and this group of nodes was then excised en bloc with the breast and the specimen delivered from the field. The area of dissection was inspected. No bleeding or other problems were noted. Two Danish-Souza drains were then placed through stab wounds inferior to the main incision. The incision was then closed with 2 layers of 2-0 Vicryl stitch deep and then sean for the skin. Drains were fixed with some 3-0 nylon stitch. The patient was taken to the recovery room in satisfactory condition. There were no evident complications. Coleman Lanier MD /[id number]
== END 2020-03-22 12:09 | disposition home health service (06) | DRG 582 ==
LOC: JP.MS 08:42 → JP.SDS 08:42 → JP.MS 12:30 → EDSTATUS 14:25
PROVIDERS: ADMIT Surgery; ATTEND Surgery
PROC: 0HTT0ZZ Resection of Right Breast, Open Approach (ICD-10-PCS; principal; 2020-03-19)
PROC: 3E02340 Introduction of Influenza Vaccine into Muscle, Percutaneous Approach (ICD-10-PCS; 2020-03-22)
DX: D05.11 Intraductal carcinoma in situ of right breast (principal); C34.31 Malignant neoplasm of lower lobe, right bronchus or lung; J44.9 Chronic obstructive pulmonary disease, unspecified; I10 Essential (primary) hypertension; E78.5 Hyperlipidemia, unspecified; Z99.81 Dependence on supplemental oxygen; Z88.5 Allergy status to narcotic agent; Z87.442 Personal history of urinary calculi; Z87.891 Personal history of nicotine dependence; Z90.49 Acquired absence of other specified parts of digestive tract; Z90.710 Acquired absence of both cervix and uterus; Z90.89 Acquired absence of other organs; Z23 Encounter for immunization
CPT/HCPCS: 36415; 80053; 83735; 83880; 84100; 85027; 90662; 93005; 94640; 94762; 97110-GP; 97162-GP; 97530-GP; 97535-GP; A9270-GY; G0008; J0330; J0690; J1100; J1170; J2405; J2704; J2710; J3010; J3490; J7121; J7605; J7620-GY; Q9968

== ENCOUNTER 2021-03-14 06:50 | Day surgery (SDC) | payer MEDICARE, OTHER ==
[2021-03-14] MEDS ORDERED: fentaNYL 100 MCG/2 ML SDV ONE (07:19)
[2021-03-14] MEDS ORDERED: Propofol 200 MG/20 ML SDV ONE ×2 (07:19→09:15)
[2021-03-14] MEDS ORDERED: Sodium Chloride 0.9% 1,000 ML IV SCH (07:30)
[2021-03-14 10:16] VITALS: BP 137/73; PULSE 73
--- NOTE | 2021-03-14 12:15 | OR ---
DATE OF PROCEDURE: 03/14/2021 SURGEON: Robin Gomez MD PROCEDURE: Colonoscopy. FINDINGS: Normal colonoscopy. Diverticulosis, mild, with tortuous sigmoid colon. COMPLICATIONS: None. ASSEMBLER SANDAL PARTS: None. PREOPERATIVE DIAGNOSIS: Screening colonoscopy/history of colon polyps. POSTOPERATIVE DIAGNOSIS: Screening colonoscopy/history of colon polyps. RISKS: Risks, benefits, alternatives, and limitations including, but not limited to infection, bleeding, perforation, false positives, false negatives were explained to the patient and she wished to proceed. PROCEDURE IN DETAIL: The patient was placed in a left lateral decubitus position. Digital rectal exam was performed without abnormality. Scope was introduced and advanced atraumatically to the ileocecal valve. A photo was taken of this. Scope was brought back through the ascending, transverse, descending colon and retroflexed. No evidence of old or new blood. No masses. No polyps. The patient did have some mild diverticulosis. Greater than 8 minutes was spent removing the scope. Prep was acceptable, approximately 90% of the luminal surface could be seen. The patient tolerated the procedure well. Robin Gomez MD /[id number]
== END 2021-03-14 10:30 | disposition home or self-care (01) ==
LOC: JP.SDS 06:50
PROVIDERS: ATTEND Surgery
DX: Z12.11 Encounter for screening for malignant neoplasm of colon (principal); K57.30 Diverticulosis of large intestine without perforation or abscess without bleeding; J44.9 Chronic obstructive pulmonary disease, unspecified; E78.5 Hyperlipidemia, unspecified; Z86.010 Personal history of colon polyps
CPT/HCPCS: G0105; J2704; J3010; J7030

== ENCOUNTER 2021-10-04 15:10 | Emergency (ER) | payer MEDICARE, OTHER ==
[2021-10-04 16:54] VITALS: BP 157/88; PULSE 68
== END 2021-10-04 19:12 | disposition home or self-care (01) ==
LOC: JP.ED 15:10
DX: M79.662 Pain in left lower leg (principal); I11.0 Hypertensive heart disease with heart failure; I50.9 Heart failure, unspecified; J44.9 Chronic obstructive pulmonary disease, unspecified; E66.9 Obesity, unspecified; Z68.36 Body mass index [BMI] 36.0-36.9, adult; Z88.5 Allergy status to narcotic agent; Z79.82 Long term (current) use of aspirin; Z79.899 Other long term (current) drug therapy; Z87.891 Personal history of nicotine dependence
CPT/HCPCS: 36415; 80048; 85025; 85379; 93971-26-LT; 93971-LT; 99282; 99284-25

== ENCOUNTER 2021-10-15 14:11 | Emergency (ER) | payer MEDICARE, OTHER ==
[2021-10-15 14:55] VITALS: BP 152/86; PULSE 80
[2021-10-15] MEDS ORDERED: Clindamycin Phosphate 900 MG in Sodium Chloride 0.9% 100 ML IV ONE (15:24)
[2021-10-15] MEDS ORDERED: Sodium Chloride 0.9% 10 ML Syringe FLUSH PRN (15:25)
[2021-10-15] MEDS ORDERED: Sodium Chloride 0.9% 100 ML ONE (16:11)
[2021-10-15] MEDS: Clindamycin Phosphate 900 MG/6 ML SDV ONE (16:17)
== END 2021-10-15 17:14 | disposition home or self-care (01) ==
LOC: JP.ED 14:11
DX: L03.116 Cellulitis of left lower limb (principal); I87.2 Venous insufficiency (chronic) (peripheral); J96.11 Chronic respiratory failure with hypoxia; I11.0 Hypertensive heart disease with heart failure; I50.9 Heart failure, unspecified; E11.9 Type 2 diabetes mellitus without complications; E78.00 Pure hypercholesterolemia, unspecified; Z88.5 Allergy status to narcotic agent; Z79.82 Long term (current) use of aspirin; Z79.899 Other long term (current) drug therapy
CPT/HCPCS: 36415; 85025; 86140; 96365; 99283; J3490

== ENCOUNTER 2023-05-16 11:30 | Emergency (ER) | payer MEDICARE, OTHER ==
[2023-05-16 11:43] VITALS: BP 169/102; PULSE 75
[2023-05-16] MEDS ORDERED: Sodium Chloride 0.9% 10 ML Syringe FLUSH PRN (12:17)
[2023-05-16] MEDS ORDERED: Ondansetron 4 MG Tab.DIS PO ONE (12:17)
[2023-05-16 12:40] LABS: BASOPHILS ABSOLUTE AUTO 0.02 K/uL (0.00-0.10); BASOPHILS PERCENT AUTO 0.2 % (0.1-1.3); EOSINOPHILS ABSOLUTE AUTO 0.09 K/uL (0.00-0.40); EOSINOPHILS PERCENT AUTO 1.1 % (0.0-5.4); HEMATOCRIT 42.3 % (34.3-46.0); HEMOGLOBIN 13.4 g/dL (11.2-15.5); IMMATURE GRAN ABSOLUTE AUTO 0.02 K/uL (0.00-0.23); IMMATURE GRAN PERCENT AUTO 0.2 % (0.0-0.7); LYMPHOCYTES ABSOLUTE AUTO 2.33 K/uL (0.8-3.3); LYMPHOCYTES PERCENT AUTO 28.4 % (11.4-47.7); MEAN CORPUSCULAR HEMOGLOBIN 28.6 pg (31.6-35.5); MEAN CORPUSCULAR HGB CONC 31.7 g/dL (31.6-35.5); MEAN CORPUSCULAR VOLUME 90.4 fL (81.4-99.0); MONOCYTES ABSOLUTE AUTO 0.61 K/uL (0.20-0.90); MONOCYTES PERCENT AUTO 7.4 % (3.3-12.6); NEUTROPHILS ABSOLUTE AUTO 5.14 K/uL (1.0-7.6); NEUTROPHILS PERCENT AUTO 62.7 % (40.0-78.1); PLATELET COUNT,PLT 201 K/uL (130-375); RED BLOOD CELL COUNT 4.68 M/uL (3.77-5.24); WHITE BLOOD CELL COUNT,WBC 8.2 K/uL (3.2-11.0)
[2023-05-16] MEDS ORDERED: Clopidogrel 75 MG Tab PO ONE (12:52)
[2023-05-16] MEDS ORDERED: Aspirin 81 MG Tab.Chew PO ONE (12:52)
[2023-05-16] MEDS ORDERED: Heparin Sodium 5,000 Units/ML Vial IVPUSH ONE (12:52)
[2023-05-16] MEDS ORDERED: Heparin Sodium/D5W 25,000 UNITS/500 ML BAG IV SCH (13:00)
[2023-05-16 13:05] LABS: CREATININE 0.8 mg/dL (0.6-1.0); EST CRCL DRUG DOSING (CG) 39.61 mL/min
[2023-05-16 13:08] LABS: BASE EXCESS VENOUS 0.9 mm/L; BICARBONATE,VENOUS 26.8 mmol/L; CARBOXYHEMOGLOBIN 0.9 % (0.0-1.6); METHEMOGLOBIN 1.2 %; O2 SATURATION VENOUS 49.1; OXYHEMOGLOBIN 48.1 %; PCO2 VENOUS 50.6 mm/Hg; PH,VENOUS 7.344 (7.350-7.450); TOTAL HEMOGLOBIN 13.5 g/dL (12.0-16.0)
[2023-05-16 13:09] LABS: ANION GAP 13.2 mmol/L (5.0-14.0)
[2023-05-16 13:10] LABS: TROPONIN I HIGH SENSITIVITY 409.7 pg/mL (<=60.3)
[2023-05-16 13:11] LABS: PO2 VENOUS 32.1 mm/Hg
[2023-05-16 13:11] LABS: POTASSIUM,K 5.2 mmol/L (3.6-5.2)
[2023-05-16 13:38] LABS: PROTHROMBIN TIME 9.9 sec (9.2-10.6)
== END 2023-05-16 13:24 ==
LOC: JP.ED 11:30
DX: I21.9 Acute myocardial infarction, unspecified (principal); I11.0 Hypertensive heart disease with heart failure; I50.9 Heart failure, unspecified; J44.9 Chronic obstructive pulmonary disease, unspecified; K21.9 Gastro-esophageal reflux disease without esophagitis; E78.00 Pure hypercholesterolemia, unspecified; E66.9 Obesity, unspecified; M19.90 Unspecified osteoarthritis, unspecified site; Z79.82 Long term (current) use of aspirin; Z79.84 Long term (current) use of oral hypoglycemic drugs; Z79.899 Other long term (current) drug therapy; Z88.5 Allergy status to narcotic agent; Z68.39 Body mass index [BMI] 39.0-39.9, adult; M51.16 Intervertebral disc disorders with radiculopathy, lumbar region; M53.87 Other specified dorsopathies, lumbosacral region
CPT/HCPCS: 36415; 62323; 80048; 82803; 84484; 85025; 85610; 93005; 96365; 99285; A9270; J1040; J1644; J3490; Q0162

== ENCOUNTER 2023-05-22 10:46 | Observation (INO) | payer MEDICARE, OTHER ==
[2023-05-22 11:08] LABS: BASOPHILS PERCENT AUTO 0.1 % (0.1-1.3); EOSINOPHILS ABSOLUTE AUTO 0.14 K/uL (0.00-0.40); EOSINOPHILS PERCENT AUTO 1.4 % (0.0-5.4); HEMATOCRIT 44.9 % (34.3-46.0); HEMOGLOBIN 14.3 g/dL (11.2-15.5); IMMATURE GRAN ABSOLUTE AUTO 0.09 K/uL (0.00-0.23); IMMATURE GRAN PERCENT AUTO 0.9 % (0.0-0.7); LYMPHOCYTES ABSOLUTE AUTO 2.32 K/uL (0.8-3.3); LYMPHOCYTES PERCENT AUTO 23.3 % (11.4-47.7); MEAN CORPUSCULAR HEMOGLOBIN 28.4 pg (31.6-35.5); MEAN CORPUSCULAR HGB CONC 31.8 g/dL (31.6-35.5); MEAN CORPUSCULAR VOLUME 89.1 fL (81.4-99.0); MONOCYTES ABSOLUTE AUTO 0.89 K/uL (0.20-0.90); MONOCYTES PERCENT AUTO 8.9 % (3.3-12.6); NEUTROPHILS ABSOLUTE AUTO 6.52 K/uL (1.0-7.6); NEUTROPHILS PERCENT AUTO 65.4 % (40.0-78.1); PLATELET COUNT,PLT 218 K/uL (130-375); RED BLOOD CELL COUNT 5.04 M/uL (3.77-5.24)
[2023-05-22 11:09] LABS: BASOPHILS ABSOLUTE AUTO 0.01 K/uL (0.00-0.10)
[2023-05-22 11:38] LABS: ANION GAP 11.9 mmol/L (5.0-14.0); BLOOD UREA NITROGEN,BUN 53 mg/dL (7-18); CALCIUM 10.4 mg/dL (8.5-10.1); CARBON DIOXIDE,CO2 28 mmol/L (21-32); CHLORIDE,CL 100 mmol/L (100-108); CREATININE 1.3 mg/dL (0.6-1.0); ESTIMATED GFR 41 mL/min (>60); GLUCOSE RANDOM 163 mg/dL (74-106); POTASSIUM,K 4.5 mmol/L (3.6-5.2); SODIUM,NA 140 mmol/L (140-148)
[2023-05-22 11:41] LABS: TROPONIN I HIGH SENSITIVITY 217.3 pg/mL (<=60.3)
[2023-05-22] MEDS ORDERED: Sodium Phosphate,Monobasic/Sodium Phosphate,Dibasic Enema 133 ML Bottle RECTAL ONE (14:10)
[2023-05-22] MEDS ORDERED: Ondansetron 4 MG/2 ML SDV IV PRN (17:28)
[2023-05-22] MEDS ORDERED: Magnesium Hydroxide 400 MG/5 ML Susp 30 ML Cup PO PRN (17:28)
[2023-05-22] MEDS ORDERED: traMADol 50 MG Tab PO PRN (17:28)
[2023-05-22] MEDS ORDERED: Trolamine Salicylate/Aloe Vera 10% Crm 85 GM Tube TOP PRN (17:28)
[2023-05-22] MEDS ORDERED: Albuterol 0.083% 2.5 MG/3 ML Neb Soln NEB PRN (17:28)
[2023-05-22] MEDS ORDERED: Melatonin 3 MG Tab PO PRN (17:28)
[2023-05-22] MEDS ORDERED: Sennosides/Docusate Sodium 50-8.6 MG Tab PO PRN (17:28)
[2023-05-22] MEDS ORDERED: Ondansetron 4 MG Tab.DIS PO PRN (17:28)
[2023-05-22] MEDS ORDERED: Non-Formulary Medication 1 Each (Metformin [Glucophage] 1,000 MG Tablet) PO SCH (17:28)
[2023-05-22] MEDS ORDERED: Carvedilol 3.125 MG Tab PO SCH (18:00)
[2023-05-22 18:01] LABS: CORONAVIRUS COVID-19 NAA NEGATIVE (NEGATIVE); INFLUENZA A NAA NEGATIVE (NEGATIVE); INFLUENZA B NAA NEGATIVE (NEGATIVE); RESPIRATORY SYNCYTIAL VIR NAA NEGATIVE (NEGATIVE)
[2023-05-22] MEDS ORDERED: Arformoterol 15 MCG/2 ML Neb Soln INH SCH (21:00)
[2023-05-22] MEDS ORDERED: Budesonide 0.5 MG/2 ML Neb Susp NEB SCH (21:00)
[2023-05-22] MEDS ORDERED: atorvaSTATin 10 MG Tab PO SCH (21:00)
[2023-05-22] MEDS ORDERED: Gabapentin 300 MG Cap PO SCH (21:00)
[2023-05-23] MEDS: Acetaminophen 325 MG Tab PO PRN ×4 (00:07→20:23)
[2023-05-23 05:31] LABS: HEMATOCRIT 41.6 % (34.3-46.0); HEMOGLOBIN 13.3 g/dL (11.2-15.5); MEAN CORPUSCULAR HEMOGLOBIN 28.3 pg (31.6-35.5); MEAN CORPUSCULAR VOLUME 88.5 fL (81.4-99.0); RED BLOOD CELL COUNT 4.7 M/uL (3.77-5.24); WHITE BLOOD CELL COUNT,WBC 8.3 K/uL (3.2-11.0)
[2023-05-23 05:57] LABS: ANION GAP 7.1 mmol/L (5.0-14.0); CALCIUM 10.2 mg/dL (8.5-10.1); CREATININE 1.3 mg/dL (0.6-1.0); EST CRCL DRUG DOSING (CG) 24.38 mL/min; POTASSIUM,K 4.8 mmol/L (3.6-5.2)
[2023-05-23 06:08] LABS: TROPONIN I HIGH SENSITIVITY 151.7 pg/mL (<=60.3)
[2023-05-23] MEDS: Trolamine Salicylate/Aloe Vera 10% Crm 85 GM Tube TOP PRN ×3 (07:28→20:24)
[2023-05-23] MEDS ORDERED: Pantoprazole 40 MG Tab.CR PO SCH ×2 (07:30)
[2023-05-23] MEDS: Arformoterol 15 MCG/2 ML Neb Soln INH SCH ×2 (08:15→20:14)
[2023-05-23] MEDS: Ascorbic Acid 500 MG Tab PO SCH (08:16)
[2023-05-23] MEDS: Fish Oil/Omega-3 Fatty Acids 1 Gm Cap PO SCH (08:16)
[2023-05-23] MEDS: Lactobacillus Rhamnosus GG (Probiotic) Cap PO SCH (08:16)
[2023-05-23] MEDS: OMEPRAZOLE 20MG **PTOM PO SCH ×2 (08:19→16:16)
[2023-05-23] MEDS: Aspirin 81 MG Tab.EC **PTOM PO SCH (08:21)
[2023-05-23] MEDS: VALSARTAN PO SCH (08:21)
[2023-05-23] MEDS: SACUBITRIL PO SCH (08:21)
[2023-05-23] MEDS: EMPAGLIFLOZIN 10 MG PO SCH (08:22)
[2023-05-23] MEDS: VITAMIN E 400 UNIT PO SCH (08:23)
[2023-05-23] MEDS: Budesonide 0.5 MG/2 ML Neb Susp NEB SCH ×2 (08:30→20:14)
[2023-05-23] MEDS ORDERED: GLUCOSAM PO SCH (09:00)
[2023-05-23] MEDS ORDERED: [UNRECOGNIZED DRUG - OTHER] PO SCH (09:00)
[2023-05-23] MEDS ORDERED: CHONDR PO SCH (09:00)
[2023-05-23] MEDS ORDERED: Empagliflozin 10 MG Tab PO SCH (09:00)
[2023-05-23] MEDS ORDERED: HYALUR PO SCH (09:00)
[2023-05-23] MEDS: Gabapentin 300 MG Cap **PTOM PO SCH ×2 (09:59→20:25)
[2023-05-23] MEDS ORDERED: LOVASTATIN 40 MG PO SCH (21:00)
[2023-05-24 06:15] LABS: ANION GAP 3.4 mmol/L (5.0-14.0); EST CRCL DRUG DOSING (CG) 31.69 mL/min; POTASSIUM,K 4.5 mmol/L (3.6-5.2)
[2023-05-24] MEDS: Arformoterol 15 MCG/2 ML Neb Soln INH SCH (06:58)
[2023-05-24] MEDS: Budesonide 0.5 MG/2 ML Neb Susp NEB SCH (06:58)
[2023-05-24] MEDS ORDERED: metFORMIN 500 MG Tab PO SCH (08:00)
[2023-05-24] MEDS: OMEPRAZOLE 20MG **PTOM PO SCH (08:12)
[2023-05-24] MEDS: Lactobacillus Rhamnosus GG (Probiotic) Cap PO SCH (08:14)
[2023-05-24] MEDS: VALSARTAN PO SCH (08:15)
[2023-05-24] MEDS: SACUBITRIL PO SCH (08:15)
[2023-05-24] MEDS: Fish Oil/Omega-3 Fatty Acids 1 Gm Cap PO SCH (08:15)
[2023-05-24] MEDS: EMPAGLIFLOZIN 10 MG PO SCH (08:16)
[2023-05-24] MEDS: Aspirin 81 MG Tab.EC **PTOM PO SCH (08:16)
[2023-05-24] MEDS: Ascorbic Acid 500 MG Tab PO SCH (08:17)
[2023-05-24] MEDS: Gabapentin 300 MG Cap **PTOM PO SCH (08:17)
[2023-05-24] MEDS: VITAMIN E 400 UNIT PO SCH (08:18)
[2023-05-24 12:34] VITALS: BP 117/64; PULSE 76
== END 2023-05-24 12:30 | disposition home health service (06) ==
LOC: JP.ED 10:46 → JP.MS 17:21 → INTOOBSV 17:21
PROVIDERS: ADMIT Internal Medicine; ATTEND Internal Medicine
DX: I95.2 Hypotension due to drugs (principal); I50.20 Unspecified systolic (congestive) heart failure; J44.9 Chronic obstructive pulmonary disease, unspecified; J96.11 Chronic respiratory failure with hypoxia; E11.42 Type 2 diabetes mellitus with diabetic polyneuropathy; E66.9 Obesity, unspecified; E78.00 Pure hypercholesterolemia, unspecified; Z79.82 Long term (current) use of aspirin; Z79.84 Long term (current) use of oral hypoglycemic drugs; Z79.899 Other long term (current) drug therapy; Z88.5 Allergy status to narcotic agent
CPT/HCPCS: 0241U; 36415; 71045; 80048; 83880; 84484; 85025; 85027; 94640; 99285; A9270; 99222; 99232; 99238; G0378; J7605